=== PATIENT | female | born 1995 | race African-American/Black ===

== ENCOUNTER 2021-06-26 13:51 | Emergency (ER) | payer OTHER ==
[2021-06-26] MEDS ORDERED: PROVENTIL HFA6.7 GM INH (17:45)
[2021-06-26] MEDS ORDERED: PREDNISONE20 M1 PO (17:45)
== END 2021-06-26 18:34 | disposition home or self-care (01) ==
LOC: ED 13:51
DX: S63.610A Unspecified sprain of right index finger, initial encounter (principal); Z20.822 Contact with and (suspected) exposure to COVID-19; J40 Bronchitis, not specified as acute or chronic; F17.210 Nicotine dependence, cigarettes, uncomplicated; X58.XXXA Exposure to other specified factors, initial encounter; Y93.89 Activity, other specified; Y92.89 Other specified places as the place of occurrence of the external cause; Y99.8 Other external cause status